=== PATIENT | male | born 1980 | race Caucasian/White ===

== ENCOUNTER → 2016-05-25 | Outpatient (CLI) | payer OTHER ==
--- NOTE | 2016-05-25 17:19 | DX ---
Lumbar Spine, 2 standing views History: Pain, post several falls snowboarding Comparison: None Findings: There are 5 lumbarized vertebral bodies. There is a mild L1 superior endplate compression d eformity. There is a similar minimal L2 compression deformity. There is no pedicle widening. Disk spa gena maintain normal height. There is no spondylolysis or spondylolisthesis. The SI joints and hip terrence nts look normal. Impression: Mild L1 and minimal L2 compression deformity.
== END ==
LOC: FIMAGING 15:47
PROVIDERS: ATTEND Family Medicine
DX: M53.86 Other specified dorsopathies, lumbar region (principal)

== ENCOUNTER 2016-12-10 16:25 | Emergency (ER) | payer OTHER ==
[2016-12-10 16:33] VITALS: TEMP 98.4
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
[2016-12-10] MEDS ORDERED: IOPAMIDOL (ISOVUE-300) 100 ML BTL ONE (18:45)
[2016-12-10 19:39] VITALS: BP 120/82; PULSE 57; RESP 14; O2SAT 97
== END 2016-12-10 19:38 | disposition home or self-care (01) ==
LOC: EEVIPCON 16:25
DX: S30.1XXA Contusion of abdominal wall, initial encounter (principal); V47.5XXA Car driver injured in collision with fixed or stationary object in traffic accident, initial encounter; Y92.410 Unspecified street and highway as the place of occurrence of the external cause
CPT/HCPCS: 82947-QW; Q9967